=== PATIENT | female | born 1970 | race Caucasian/White ===

== ENCOUNTER 2017-03-09 13:49 | Inpatient (IN) | payer MEDICAID, OTHER ==
[~2017-03-09] VITALS: Ht 154.9 cm; Wt 56.2 kg
[2017-03-09] MEDS ORDERED: IBUP-1096 (14:11)
[2017-03-09] MEDS ORDERED: TYLENOL (14:11)
[2017-03-09 16:05] LABS: EOSINOPHILS # (AUTO) 0.1 K/uL (0.0-0.7); HEMOGLOBIN 9.1 g/dL (10.9-14.3); LYMPHOCYTES # (AUTO) 1.3 K/uL (20.0-40.0)
[2017-03-09 16:09] LABS: BASOPHILS % (AUTO) 0.2 % (0.0-2.0); EOSINOPHILS % (AUTO) 1.8 % (0.0-7.0); HEMATOCRIT 26.9 % (31.2-41.9); LYMPHOCYTES % (AUTO) 20.8 % (20.5-51.5); MEAN CORPUSCULAR HEMOGLOBIN 29.2 uug (24.7-32.8); MEAN CORPUSCULAR HGB CONC 34 g/dL (32.3-35.6); MEAN CORPUSCULAR VOLUME 86.2 fL (75.5-95.3); MONOCYTES % (AUTO) 16.1 % (0.0-11.0); NEUTROPHILS # (AUTO) 3.7 K/uL (1.8-8.9); NEUTROPHILS % (AUTO) 61.1 % (38.5-71.5); PLATELET COUNT (AUTO) 194 K/uL (179-408); RED BLOOD CELL COUNT(AUTO) 3.12 MIL/uL (3.63-4.92); WHITE BLOOD COUNT (AUTO) 6.1 K/uL (3.8-11.8)
[2017-03-09 16:10] LABS: CREATININE 0.7 mg/dL (0.6-1.3); POTASSIUM 3.7 mmol/L (3.5-5.1)
[2017-03-09 16:16] LABS: BILIRUBIN,TOTAL 0.5 mg/dL (0.2-1.0); TOTAL PROTEIN, SERUM 8.1 g/dL (6.4-8.2)
[2017-03-09 17:12] LABS: BAND % (MANUAL) 10 % (0-10); EOSINOPHILS % (MANUAL) 2 % (0-8); LYMPHOCYTES % (MANUAL) 23 % (20-40); MONOCYTES % (MANUAL) 14 % (2-10); NEUTROPHILS % (MANUAL) 51 % (42-75)
[2017-03-09 20:00] VITALS: BP 136/83
[2017-03-09] MEDS ORDERED: ACETAMINOPHEN 325 MG TABLET PO ONE (20:15)
--- NOTE | 2017-03-09 20:18 | NUR ---
PATIENT C/O HEADACHE. OK TO GIVE ACETAMINOPHEN 650MG PO PER DR. FULLER.
--- NOTE | 2017-03-09 20:25 | NUR ---
Pt. admitted to TELE , under care of Dr. DOOLEY Belongs List completed. REPORT GIVEN TO ANGLE PRIEST
[2017-03-09] MEDS ORDERED: ACETAMINOPHEN 325 MG TABLET PO PRN (20:30)
[2017-03-09] MEDS ORDERED: MORPHINE SULFATE 2 MG/1 ML DISP.SYRIN IV PRN (20:30)
[2017-03-09] MEDS ORDERED: ONDANSETRON 4 MG/2 ML VIAL IV PRN (20:30)
[2017-03-09] MEDS ORDERED: ACETAMINOPHEN 325 MG TABLET ONE (20:31)
--- NOTE | 2017-03-09 21:00 | NUR ---
NEW ADMIT FROM ER, C/O OF H/A 09/05 PT WAS MEDICATED 30 MINUTES AGO PER REPORT.OFFERED PRN PAIN MEDS PT DECLINED. CALL LIGHT PLACED WITHIN PT'S REACH, WILL CONTINUE TO MONITOR PT
[2017-03-09] MEDS: IV 1/2NS 1000 ML 1,000 ML IV PRN (23:07)
[2017-03-10] MEDS: MORPHINE SULFATE 4 MG/1 ML DISP.SYRIN IV PRN ×2 (04:58→08:38)
[2017-03-10 06:23] VITALS: BP 128/82
[2017-03-10 06:52] LABS: BASOPHILS % (AUTO) 0.2 % (0.0-2.0); EOSINOPHILS # (AUTO) 0.1 K/uL (0.0-0.7); EOSINOPHILS % (AUTO) 2.8 % (0.0-7.0); HEMATOCRIT 28.1 % (31.2-41.9); HEMOGLOBIN 9.3 g/dL (10.9-14.3); LYMPHOCYTES # (AUTO) 1.3 K/uL (20.0-40.0); LYMPHOCYTES % (AUTO) 24.7 % (20.5-51.5); MEAN CORPUSCULAR HGB CONC 33 g/dL (32.3-35.6); MEAN CORPUSCULAR VOLUME 87.3 fL (75.5-95.3); MONOCYTES # (AUTO) 0.8 K/uL (2.0-10.0); MONOCYTES % (AUTO) 15.8 % (0.0-11.0); NEUTROPHILS # (AUTO) 2.9 K/uL (1.8-8.9); NEUTROPHILS % (AUTO) 56.5 % (38.5-71.5); PLATELET COUNT (AUTO) 227 K/uL (179-408); RED BLOOD CELL COUNT(AUTO) 3.22 MIL/uL (3.63-4.92); WHITE BLOOD COUNT (AUTO) 5.1 K/uL (3.8-11.8)
[2017-03-10] MEDS ORDERED: PANTOPRAZOLE SODIUM 40 MG TABLET.DR PO SCH (07:00)
[2017-03-10 07:44] LABS: BILIRUBIN,TOTAL 0.2 mg/dL (0.2-1.0); CREATININE 0.6 mg/dL (0.6-1.3); POTASSIUM 3.9 mmol/L (3.5-5.1); TOTAL PROTEIN, SERUM 7.7 g/dL (6.4-8.2)
[2017-03-10 08:00] VITALS: BP 144/91
--- NOTE | 2017-03-10 08:00 | NUR ---
Awake, alert, oriented x 4. IVF infusing. daughter at bedside. Discussed condition and plan of care
--- NOTE | 2017-03-10 08:38 | NUR ---
Complaining of headache, Morphine 2 mg given as ordered
--- NOTE | 2017-03-10 10:00 | NUR ---
Noted vomiting after Morphine was given, but denies at this time.
[2017-03-10 10:22] LABS: BAND % (MANUAL) 7 % (0-10); BASOPHILS % (MANUAL) 2 % (0-2); EOSINOPHILS % (MANUAL) 4 % (0-8); LYMPHOCYTES % (MANUAL) 26 % (20-40); MONOCYTES % (MANUAL) 13 % (2-10); MYELOCYTES % 1 % (0-0); NEUTROPHILS % (MANUAL) 47 % (42-75)
[2017-03-10] MEDS ORDERED: TRAMADOL HCL 50 MG TABLET PO PRN (11:00)
--- NOTE | 2017-03-10 11:00 | NUR ---
With vomiting, Zofran IV given as ordered. Headache not relieved, Dr. Tubbs informed
--- NOTE | 2017-03-10 11:35 | NUR ---
Tramadol given for headache. CT scan of head ordered
[2017-03-10 11:48] VITALS: BP 140/89
--- NOTE | 2017-03-10 12:00 | NUR ---
Ultrasound of abdomen done at bedside
[2017-03-10] MEDS ORDERED: MORPHINE SULFATE 4 MG/1 ML DISP.SYRIN IV PRN (14:15)
[2017-03-10] MEDS: ONDANSETRON 4 MG/2 ML VIAL IV PRN ×2 (14:27→18:23)
--- NOTE | 2017-03-10 14:30 | NUR ---
Dr. Tubbs seen and examined patient. Zofran IV given then Morphine increased to 4 mg IV given.
[2017-03-10 15:30] VITALS: BP 126/75
[2017-03-10] MEDS: IV 1/2NS 1000 ML 1,000 ML IV PRN (16:39)
[2017-03-10] MEDS ORDERED: KETOROLAC TROMETHAMINE 15 MG INJ IVP PRN (18:00)
--- NOTE | 2017-03-10 18:13 | NUR ---
Headache better with Morphine 4 mg but not totally relieved, will start on Toradol PRN. Endorsed for further care and follow up
[2017-03-10] MEDS ORDERED: HYDR-3326 PO (19:59)
[2017-03-10] MEDS ORDERED: FERR325T22 PO (19:59)
[2017-03-10] MEDS ORDERED: OMEG1CAP PO (19:59)
[2017-03-10 20:00] VITALS: BP 135/86
--- NOTE | 2017-03-10 20:00 | NUR ---
RECEIVED PATIENT AWAKE IN BED WITH FAMILY AT BEDSIDE. PATIENT IS A/O X4. DENIES PAIN OR DISCOMFORT. IVF INFUSING WELL TO LEFT WRIST. VSS. DENIES ANY NAUSEA. CALL LIGHT IN REACH. ALL NEEDS ATTENDED. WILL CONTINUE TO MONITOR.
--- NOTE | 2017-03-10 20:15 | NUR ---
RECEIVED ORDER FOR PATIENT TO BE DISCHARGED HOME.
[2017-03-10] MEDS ORDERED: OMEGA-3 FATTY ACIDS/FISH OIL CAPSULE PO SCH (21:00)
--- NOTE | 2017-03-10 21:25 | NUR ---
PATIENT DISCHARGED HOME IN STABLE CONDITION. VSS. LEFT VIA PRIVATE CAR WITH FAMILY. ALL NEEDS ATTENDED.
== END 2017-03-10 23:00 | disposition home or self-care (01) | DRG 51 ==
LOC: ER 13:49 → TELE 20:30 → MED 22:41
PROVIDERS: ADMIT Internal Medicine; ATTEND Internal Medicine
DX: A87.9 Viral meningitis, unspecified (principal); K76.0 Fatty (change of) liver, not elsewhere classified; D50.9 Iron deficiency anemia, unspecified; E78.5 Hyperlipidemia, unspecified; B34.9 Viral infection, unspecified
CPT/HCPCS: 36415; 70030-TC; 70450; 71045; 76705; 83550; 83690; 83735; 84100; 85025; 85651; 87400; 93005; A4663; J1885; J2270; J2405